=== PATIENT | male | born 2000 | race African-American/Black ===

== ENCOUNTER 2024-07-15 16:17 | Emergency (ER) | payer OTHER ==
[~2024-07-15] VITALS: Ht 190.5 cm; Wt 73.3 kg
[2024-07-15] MEDS ORDERED: VENTOLIN HFA18 GM INH (17:52)
[2024-07-15 18:18] VITALS: BP 124/70
== END 2024-07-15 18:19 | disposition home or self-care (01) ==
LOC: ED 16:17
DX: Z02.89 Encounter for other administrative examinations (principal); J45.909 Unspecified asthma, uncomplicated; G40.909 Epilepsy, unspecified, not intractable, without status epilepticus
CPT/HCPCS: 99284

== ENCOUNTER 2024-08-28 20:15 | Emergency (ER) | payer OTHER ==
[~2024-08-28] VITALS: Ht 190.5 cm; Wt 75.0 kg
[~2024-08-28 20:15] MED LIST: VENTOLIN HFA18 GM INH
[2024-08-28 22:54] LABS: N. GONORRRHOEAE BY PCR NOT DETECTED (NOT DETECT)
[2024-08-28] MEDS ORDERED: AZITHROMYCIN 250 MG TAB PO ONE (23:15)
[2024-08-28 23:16] VITALS: BP 137/73
== END 2024-08-28 23:15 | disposition home or self-care (01) ==
LOC: ED 20:15
PROVIDERS: Family Medicine
DX: A74.9 Chlamydial infection, unspecified (principal); J45.909 Unspecified asthma, uncomplicated
CPT/HCPCS: 99283